=== PATIENT | male | born 1985 | race Caucasian/White ===

== ENCOUNTER 2020-06-05 19:11 | Emergency (ER) | payer BC, SELFPAY ==
[2020-06-05 19:12] VITALS: BP 159/87; PULSE 89; RESP 16; TEMP 34.9; O2SAT 99; BMI 28.5
--- NOTE | 2020-06-05 19:22 | EKG12_ITS ---
Test Reason : CP Blood Pressure : / mmHG Vent. Rate : 087 BPM Atrial Rate : 087 BPM P-R Int : 150 ms QRS Dur : 098 ms QT Int : 372 ms P-R-T Axes : 060 035 032 degrees QTc Int : 447 ms Normal sinus rhythm Normal ECG Confirmed by OVI TORRES, DASHA ([id number]), script editor SIMIN ORELLANA ([id number]) on 06/06/2020 12:57:07 PM Referred By: JAYMIE Confirmed By:DASHA DIOR MD
--- NOTE | 2020-06-05 19:23 | ED.VISSUMM ---
- ER Visit Summary Date of Service: 06/05/20 Chief Complaint: [Chest pain] History of Present Illness: The patient is a 34 M [presents to the emergency department complaint of chest discomfort that started for 5 days ago. Initially started with a little bit of pressure that would then go away after a few seconds and then it would come back from time to time. Over the last 24 hours it has been more frequent and now about every 5 minutes this is happening. He denies any radiation of discomfort into the arm or neck or jaw. He denies any trauma. He denies recent travel or surgery. No history of PE or DVT. No significant family history for coronary artery disease or sudden cardiac . She has no medical history otherwise. He denies recent illness. He denies any COVID-19 exposures.] Physical Examination: [HEENT-PERRLA, EOMI. Cranial nerves II through XII grossly intact. TMs clear. Mucous membranes moist. No adenopathy. Cardiovascular-regular rate and rhythm without murmur or ectopy Lungs-clear to auscultation, chest wall stable without crepitus or subcu emphysema Abdomen-normoactive bowel sounds, soft, nontender, no rebound or rigidity, no peritoneal signs. Extremities-intact ?4, normal range of motion, normal pulses, atraumatic] Test Results: [EKG obtained arrival showed a sinus rhythm with a ventricular rate of 87 bpm with no acute ST segment changes. CBC with it was normal. Chemistries unremarkable. Troponin was less than 0.15. D-dimer was less than 0.27. Chest x-ray 1 view obtained interpreted by myself is normal and radiology in agreement.] Emergency Department Course and Treatment: [IV line established on arrival.] Patient placed on a quality assurance monitor body. Heart score was a 0. Treatment Plan: [Advised to follow-up with his primary care physician within next 5 to 7 days. He is advised to return if worsening pain, increasing shortness of breath, exertional dyspnea, or condition should worsen anyway.] Disposition: [Discharged home in stable condition] Impression: [Chest pain-etiology uncertain] This note was generated with [employer] software. It may contain incorrect words, spelling, and punctuation that were not noted in review of the chart prior to signing ED Disposition - Plan for ED Patient: Referrals: Jeff Barnhart MD [Primary Care Provider] -
[2020-06-05] MEDS: Aspirin 81 MG TAB.CHEW 324 MG PO (19:37)
[2020-06-05] MEDS: 0.9% Normal Saline 1,000 ML 150 ML IV (19:37)
[2020-06-05 19:41] VITALS: O2SAT 97
--- NOTE | 2020-06-05 19:47 | RAD_ITS ---
STUDY: X-RAY CHEST REASON FOR EXAM: Male, 34 years old. Chest pain. Intermittent chest pain since Tuesday. Worsening in intensity and frequency over time. TECHNIQUE: Single AP portable view of the chest. COMPARISON: None. FINDINGS: The lungs are clear and expanded. There is no demonstrated pleural abnormality. Normal size heart. Normal mediastinum and marlon. Normal visualized pulmonary arteries. Normal visualized aortic arch and descending thoracic aorta. Normal visualized thoracic spine. Normal visualized ribs, clavicles, and shoulders. There is no demonstrated abnormality of the visualized soft tissue structures of the upper abdomen. RAD/Chest 1 View (Portable) IMPRESSION: Normal x-ray examination of the chest. Electronically Signed: Cortez Hardy DO at 20:14 EDT Tel [phone], Service support ,
[2020-06-05 19:55] LABS: Absolute Lymphocyte Count 3.11 X10^3/uL (0.83-4.51); Absolute Neutrophil Count 3.9 X10^3/uL (2.0-7.7); Basophil# 0.06 X10^3/uL; Basophil% 0.7 % (0-1); Eosinophil# 0.49 X10^3/uL; Eosinophils% 5.9 % (0-5); Hematocrit 46.5 % (40-54); Hemoglobin 14.7 g/dL (13.0-16.5); Lymphocyte # 3.11 X10^3/ul (4.0); Lymphocyte % 37.4 % (19-41); Mean Corp Hgb Conc 31.6 g/dL (32-36); Mean Corpuscular Hgb 26.1 pg (27.0-32.0); Mean Corpuscular Volume 82.4 fL (80-94); Mean Platelet Vol. 9.1 fl (6.2-12.0); Monocyte# 0.66 X10^3/uL; Monocyte% 7.9 % (0-10); NRBC Flagged by Analyzer 0 % (0-5); Neutrophil # 3.94 X10^3/uL (2.7-7.7); Neutrophil % 47.4 % (47-70); Platelet Count 288 K/mm3 (150-450); RBC Distribution Width CV 12.4 % (11.6-14.6); RBC Distribution Width SD 37.3 fl (35.1-43.9); Red Blood Count 5.64 M/mm3 (4.6-6.2); White Blood Count 8.3 K/mm3 (4.4-11.0)
[2020-06-05 20:02] LABS: D-Dimer Quantitative (DVT/PE) <= 0.27 FEU/ug/m (0.27-0.49)
[2020-06-05 20:16] LABS: Anion Gap 6 (5-15); BUN 19 mg/dL (7-18); BUN/Creat Ratio 19.2 RATIO (10-20); Chloride 103 mmol/L (98-107); Creatinine, Serum 0.99 mg/dL (0.70-1.30); EST Glomerular Filtration Rate 92 mL/min (>60); Est Glom Filt Rate - Afr Amer 112 mL/min (>60); Estimated Creatinine Clearance 113.03 ml/min; Glucose 125 mg/dL (74-106); Potassium 3.8 mmol/L (3.5-5.1); Sodium Level 136 mmol/L (136-145)
--- NOTE | 2020-06-05 20:27 | ED.DEP ---
ED Disposition - Plan for ED Patient: Instructions: ED Chest Pain, Uncertain Cause Referrals: Jeff Barnhart MD [Primary Care Provider] - 5-7 Days
[2020-06-05 20:33] VITALS: BP 152/91; PULSE 86; RESP 15; O2SAT 98
== END 2020-06-05 20:36 | disposition home or self-care (01) ==
PROVIDERS: Emergency Provider Emergency Medicine; PCP Family Medicine
DX: R07.9 Chest pain, unspecified (principal)
CPT/HCPCS: 71045; 80048; 84484; 85025; 85379; 93005; 96360; 99285; J7030; A4216